=== PATIENT | male | born 1940 | race Caucasian/White ===

== ENCOUNTER → 2016-06-20 | Outpatient (CLI) | payer OTHER ==
--- NOTE | 2016-06-20 14:54 | DI ---
INDICATION: ITS.REASON: DIAGNOSTIC TESTING PROCEDURE: CHEST 2-VIEWS UPRIGHT (PA \T\ LAT) Encounter: Initial COMPARISON: None FINDINGS: The lungs are clear without evidence of focal abnormal airspace opacity. There is no pleural effusion or pneumothorax. There is a subtle peripheral somewhat linear nodular opacity with underlying pleural thickening in the lateral left base likely, a small scar. There is cardiomegaly without pulmonary vascular engorgement and there is median sternotomy. There is no significant skeletal abnormality. IMPRESSION: 1. Probable parenchymal scar in the periphery of the left base. 2. Cardiomegaly without overt congestive heart failure. .
== END ==
LOC: IMA 14:16
DX: Z02.9 Encounter for administrative examinations, unspecified (principal); I51.7 Cardiomegaly